=== PATIENT | male | born 1985 ===

== ENCOUNTER 2022-10-21 06:16 | Day surgery (SDC) | payer OTHER ==
[~2022-10-21] VITALS: Ht 175.3 cm; Wt 85.7 kg
[2022-10-21] MEDS ORDERED: TRAM1TAB98 PO (10:40)
[2022-10-21] MEDS ORDERED: CEPHALEXIN750 MG PO (10:40)
== END 2022-10-21 15:00 | disposition home or self-care (01) ==
LOC: CIR.AMB 06:16
PROVIDERS: ATTEND Surgery
DX: D49.2 Neoplasm of unspecified behavior of bone, soft tissue, and skin (principal); L72.0 Epidermal cyst; R22.0 Localized swelling, mass and lump, head; Z20.822 Contact with and (suspected) exposure to COVID-19